=== PATIENT | female | born 1995 | race Two or more races ===

== ENCOUNTER 2024-03-25 12:07 | Emergency (ER) | payer OTHER ==
[~2024-03-25] VITALS: Ht 160 cm; Wt 75.0 kg
[2024-03-25 13:14] VITALS: TEMP 98.4
[2024-03-25 13:35] LABS: BASOPHILS % (AUTO) 0.5 % (0.0-2.0); EOSINOPHILS % (AUTO) 1.9 % (1.0-6.0); HEMATOCRIT 44.9 % (36-46); HEMOGLOBIN 14.8 g/dL (12.0-16.0); LYMPHOCYTES # (AUTO) 2.2 K/uL (1.0-4.8); LYMPHOCYTES % (AUTO) 25.2 % (22.0-44.0); MEAN CORPUSCULAR HEMOGLOBIN 28.6 pg (26.0-34.0); MEAN CORPUSCULAR HGB CONC 32.9 G/dL (31.0-37.0); MEAN CORPUSCULAR VOLUME 87 fL (80-100); MONOCYTES # (AUTO) 0.5 K/uL (0.1-1.0); MONOCYTES % (AUTO) 5.3 % (2.0-9.0); NEUTROPHILS # (AUTO) 5.8 K/uL (1.8-7.7); NEUTROPHILS % (AUTO) 67.1 % (40.0-70.0); PLATELET COUNT (AUTO) 284 K/uL (150-450); RED BLOOD CELL COUNT(AUTO) 5.15 MIL/uL (4.00-5.20); RED CELL DISTRIBUTION WIDTH 12.9 % (11.5-14.5); WHITE BLOOD COUNT (AUTO) 8.7 K/uL (4.5-11.0)
[2024-03-25 13:46] LABS: ANION GAP 10 mmol/L (8-16); CALCIUM, TOTAL 8.6 mg/dL (8.8-10.5); CARBON DIOXIDE 27 mmol/L (22-29); CHLORIDE 104 mmol/L (98-107); CREATININE 0.88 mg/dL (0.60-1.30); GLOMERULAR FILTR. RATE CALC > 60 mL/min (>60); GLUCOSE,RANDOM 91 mg/dL (70-110); POTASSIUM 3.9 mmol/L (3.5-5.1); SODIUM SERUM 141 mmol/L (136-145); UREA NITROGEN, BLOOD 10 mg/dL (7-18)
[2024-03-25 13:51] LABS: CREATINE KINASE, TOTAL ONLY 71 U/L (26-192)
[2024-03-25 13:54] LABS: LACTIC ACID 0.8 mmol/L (0.4-2.0)
[2024-03-25 13:59] LABS: TROPONIN I-HIGH SENSITIVITY Less Than 4 ng/L (<51)
[2024-03-25] MEDS: ACETAMINOPHEN 500 MG TABLET PO ONE (14:11)
[2024-03-25] MEDS: METOCLOPRAMIDE HCL 5 MG/ML 2 ML VIAL IVP ONE (15:14)
[2024-03-25] MEDS: DiphenhydrAMINE HCL 50 MG/ML VIAL IVP ONE (15:14)
[2024-03-25 15:15] VITALS: BP 126/70; PULSE 94; RESP 16; O2SAT 99
[2024-03-25] MEDS: SODIUM CHLORIDE 0.9% 1,000 ML IV ONE (15:15)
== END 2024-03-25 16:26 | disposition home or self-care (01) ==
LOC: EMS 12:07
DX: G43.909 Migraine, unspecified, not intractable, without status migrainosus (principal); R55 Syncope and collapse
CPT/HCPCS: 99285; 96374; 70450; 96361; 96375; 80048; 82550; 83605; 84484; 84703; 85025; 93005; 36415; J1200; J2765; J7030